=== PATIENT | female | born 1985 | race Caucasian/White ===

== ENCOUNTER 2024-10-29 14:47 | Emergency (ER) | payer MEDICAID, SELFPAY ==
[2024-10-29 14:55] VITALS: BP 110/66; PULSE 77; RESP 18; TEMP 36.5; O2SAT 96; BMI 25.0
--- NOTE | 2024-10-29 15:28 | ED_ITS ---
HPI - Extremity Problem General Chief complaint: Extremity Problem,Nontraumatic Stated complaint: welts on leg thinks is a blood clot Time Seen by Provider: 10/29/24 15:28 Source: patient Mode of arrival: Ambulatory History of Present Illness HPI Narrative: 39-year-old female no significant past medical history comes into the ED from home for evaluation of bruising to left posterior calf, states that she is worried that this might be a blood clot, states that there is some pain with palpation but denies any trauma patient denies any recent travel no other symptoms at this time Related Data Allergies Allergy/AdvReac Type Severity Reaction Status Date / Time No Known Drug Allergies Allergy Verified 10/29/24 14:58 Review of Systems Review of Systems Narrative: General: Denies fever, chills, weight loss HEENT: Denies headache, eye drainage, eye irritation, head trauma, sore throat, voice change Cardiovascular: Denies any chest pain, palpitations, tachycardia Respiratory: Denies any shortness of breath, cough, wheeze, stridor GI/: Denies any abdominal pain, nausea, vomiting, diarrhea, bright red blood per rectum, melanotic stools, urinary frequency, urinary retention, dysuria, hematuria MSK: Denies any joint pain, muscle pains, swelling Skin: Bruising to left posterior calf Neuro: Denies any headache, lightheadedness, dizziness, fainting, weakness Psych: Denies SI/HI Patient History Social History Smoking Status: Former smoker Smoking Status: Former smoker tobacco type: smokeless tobacco Exam Narrative Exam Narrative: General: Cooperative, well-developed, not in acute distress HEENT: Normocephalic, atraumatic, PERRLA, normal sclera, eyelids normal Neck: Active full range of motion, atraumatic Chest: Normal to inspection, negative crepitus, no overlying erythema ecchymosis Respiratory: Normal respiratory effort, not in acute respiratory distress, clear to auscultation bilaterally negative cough, wheeze, tachypnea, rhonchi, rales Cardiology: Regular rate rhythm negative gallop, murmur, rubs GI/: No tenderness to palpation, soft, non rigid, normal to inspection, exam deferred MSK: Full active range of motion in all 4 extremities, atraumatic, no tenderness to palpation of any bony prominences, patient noted ecchymosis noted to the posterior left calf, mild tenderness to palpation but otherwise neurovascularly intact no crepitus patient is able to stand bear weight ambulate unassisted here in the emergency department. Skin: No rashes or lesions noted Neuro: Alert awake oriented x3, moves all 4 extremities spontaneously, cranial nerves intact, able to answer all questions appropriately follows commands appropriately Psych: Cooperative, negative suicidal or homicidal ideations Initial Vital Signs Initial Vital Signs: Vital Signs Temperature 97.7 F 10/29/24 14:55 Pulse Rate 77 10/29/24 14:55 Respiratory Rate 18 10/29/24 14:55 Blood Pressure 110/66 10/29/24 14:55 Pulse Oximetry 96 10/29/24 14:55 Oxygen Delivery Method Room Air 10/29/24 14:55 Course Orders Ordered: ED Orders 10/29/24 15:29 periph venous low extrem lt Stat Vital Signs Vital signs: Vital Signs - 8 hr 10/29/24 14:55 Temperature 97.7 F Pulse Rate 77 Respiratory Rate 18 Blood Pressure 110/66 Pulse Oximetry 96 Oxygen Delivery Method Room Air MDM - Extremity (Nontraumatic) MDM Narrative Medical decision making narrative: 39-year-old female on methadone history of substance abuse comes into the ED from home for evaluation of pain and bruising to her left calf. States that she noticed this spontaneously today after coming home from work. She denies any trauma or falls not on any blood thinners no bleeding or clotting disorders in self or family. She does have a history of surgery to her left ankle secondary to fracture but this is remote. On my exam there is bruising to the left posterior calf but otherwise neurovascularly intact. Patient had an ultrasound of her left lower extremity rule out DVT. Ultrasound showing no DVT but is consistent with a superficial thrombophlebitis. Patient will be discharged home with NSAIDs, warm compresses and instructed to follow up with primary care in outpatient setting. Discharge Plan Departure Patient Disposition: Home Clinical Impression: Superficial thrombophlebitis Instructions: DI for Superficial Thrombophlebitis Activity Restrictions/Additional Instructions: You may use NSAIDs to help with any of the pain or discomfort, you can use compression stockings to help with your symptoms His follow up with the primary care doctor Please read the discharge instructions sheet carefully and bring all papers to all doctor follow-up visits, as it may contain information that your doctor may want to see. Disease processes change and evolve, if your symptoms worsen or if you develop any new symptoms that are concerning to you please return for evaluation. Your evaluation today does not show any evidence of any life- threatening/serious illnesses requiring admission to the hospital or surgery. Please follow-up with your doctor for re-evaluation in approximately 1 day. Seek immediate medical attention for any worrisome symptoms. *If you do not have a primary care provider please contact the [facility] Resource line at [phone]. They will ask some questions about your medical history and help get you set up with a doctor in the community. Stand Alone Forms: Patient Portal/API
--- NOTE | 2024-10-29 15:29 | DI.US.S_ITS ---
PROCEDURE: US PERIPH VENOUS LOW EXTREM LT INDICATIONS: LT UPPER CALF LUMPS TECHNIQUE: Real-time imaging, as well as color and pulse Doppler interrogation, were performed of the lower extremity deep veins from the inguinal ligament to the popliteal fossa, with documentation of the visualized calf veins. COMPARISON: None. FINDINGS: The common femoral, femoral, popliteal, and the visualized calf veins are normally compressible, and free of intraluminal thrombus. Color and pulse Doppler demonstrate normal phasic intraluminal flow. There is normal augmentation response to distal compression maneuver. Limited sonography of the palpable abnormality of the left upper calf demonstrates a thrombosed superficial vein with mild adjacent edema. IMPRESSION: No findings of lower extremity deep venous thrombosis. Superficial thrombophlebitis. Dictated by: Marta Nicole M.D. on 10/29/2024 at 15:45 Approved by: Marta Nicole M.D. on 10/29/2024 at 15:47
[2024-10-29 17:12] VITALS: BP 103/70; PULSE 52; RESP 17; O2SAT 100
== END 2024-10-29 17:13 | disposition home or self-care (01) ==
PROVIDERS: Emergency Provider Student in an Organized Health Care Education/Training Program
DX: I80.02 Phlebitis and thrombophlebitis of superficial vessels of left lower extremity (principal)
CPT/HCPCS: 93971; 99281; 99283

== ENCOUNTER 2024-12-16 22:10 | Emergency (ER) | payer OTHER, SELFPAY ==
[2024-12-16 22:14] VITALS: BP 147/65; PULSE 67; RESP 24; TEMP 36.8; O2SAT 99; BMI 25.0
[2024-12-16] MEDS: IBUPROFEN 400 MG TABLET 800 MG PO (22:21)
== END 2024-12-16 23:26 | disposition left against medical advice (07) ==
PROVIDERS: Emergency Provider Emergency Medicine
DX: K08.89 Other specified disorders of teeth and supporting structures (principal)
CPT/HCPCS: 99283

== ENCOUNTER 2024-12-19 07:08 | Emergency (ER) | payer OTHER, SELFPAY ==
[2024-12-19] VITALS (12 sets, daily range): BP systolic 99–141; BP diastolic 56–86; PULSE 59–89; RESP 18–30; TEMP 36.1; O2SAT 95–100; BMI 29.2
--- NOTE | 2024-12-19 07:19 | ED_ITS ---
HPI - SOB/Dyspnea
--- NOTE | 2024-12-19 07:19 | ED.SOB ---
HPI - SOB/Dyspnea General Chief Complaint: Shortness of Breath/Dyspnea Stated Complaint: having a hard time breathing Time Seen by Provider: 12/19/24 07:16 Source: patient, RN notes reviewed and old records reviewed Limitations: no limitations History of Present Illness HPI Narrative: 39-year-old female with a history of asthma, opiate addiction on methadone, currently vapes. Patient states she started having difficulty breathing in the last day. Patient states she has not inhaler she has had issues more recently in the last couple of months. She notes she has stopped smoking tobacco about a year ago but still vapes smokes marijuana. Patient states she has tightness, she denies chest pain, she has been sweaty. She is not aware of any fevers. She has had recent cough has been nonproductive with some nasal congestion. She denies any nausea or vomiting, she notes some diarrhea recently. No new swelling in extremities. She states her only daily medication is methadone no new changes to dosage. Denies any major surgeries. She has never been hospitalized for asthma. Denies any drug allergies. Uses smokeless tobacco, vapes marijuana denies any recreational drugs. Related Data Previous Rx's ?Medication ?Instructions ?Recorded albuterol sulfate 90 mcg/actuation 2 puff inhalation QID PRN 12/19/24 aerosol inhaler shortness of breath or wheezing #6.7 grams prednisone 10 mg tablets in a dose See Rx Instructions PO .COMPLEX 12/19/24 pack #21 ea Allergies Allergy/AdvReac Type Severity Reaction Status Date / Time No Known Drug Allergies Allergy Verified 12/16/24 22:14 Review of Systems Review of Systems ROS Unobtainable: All systems reviewed & are unremarkable except as noted in HPI and below Patient History tobacco type: smokeless tobacco Exam Narrative Exam Narrative: GEN: well nourished, well appearing female, alert and oriented x 3, patient appears to be in moderate distress. Patient is diaphoretic. HEENT: Atraumatic, pupils are equal round reactive to light, extraocular movements are intact, nares are clear, there is no conjunctival pallor. Throat is clear without any exudates, erythema, tonsillar enlargement or uvular deviation, clear speech no stridor. HEART: Regular rate and rhythm without murmur, clicks, rubs. Pulses are equal in upper and lower extremities LUNGS:Lungs patient has coarse lung sounds bilaterally with wheeze more in the left upper but expiratory wheeze present throughout, patient is tachypneic rales, crackles, chest moves symmetrically, speaks in 3-4 word sentences. ABD:bowel sounds normal, soft, non-tender, no guarding, rebound, rigidity, no masses noted, no hepatosplenomegaly MSCL: Non-tender, no muscle atrophy, muscles strength 5/5 upper and lower extremities, full range of motion, normal gait NEURO:CN 2-12 intact, sensation normal SKIN: No rash, erythema or other skin changes Initial Vital Signs Initial Vital Signs: Vital Signs Temperature 96.9 F L 12/19/24 07:19 Pulse Rate 89 12/19/24 07:19 Respiratory Rate 30 H 12/19/24 07:19 Blood Pressure 141/86 H 12/19/24 07:19 Pulse Oximetry 97 12/19/24 07:19 Oxygen Delivery Method Room Air 12/19/24 07:19 Course Orders Ordered: ED Orders 12/19/24 07:20 XR chest 1V Stat EKG-12 Lead Stat Measure peak expiratory flow STAT RT Consult Eval and Treat STAT 12/19/24 07:21 Complete Blood Count AUTO DIFF Stat Comprehensive Metabolic Panel Stat Lactate (Lactic Acid) Stat NT-proBNP (BNP-Adult 18+) Stat Prothrombin Time INR Stat Troponin I Stat Discontinued Medications Albuterol (Albuterol 2.5 Mg/3 Ml Neb (Adult)) 5 mg INH NOW ONE Stop: 12/19/24 08:06 Last Admin: 12/19/24 08:17 Dose: 5 mg Documented By: AVIVA Albuterol/Ipratropium (Albuterol/Ipratropium 3 Ml Ampul) 3 ml INH Q1H PRN PRN Reason: Shortness Of Breath Last Admin: 12/19/24 07:22 Dose: 3 ml Documented By: AVIVA Methylprednisolone (Methylprednisolone Succ 125 Mg/2 Ml Vial) 125 mg IV NOW ONE Stop: 12/19/24 07:20 Last Admin: 12/19/24 07:23 Dose: 125 mg Documented By: JULY Vital Signs Vital signs: Vital Signs - 8 hr 12/19/24 08:00 12/19/24 08:01 12/19/24 08:01 Pulse Rate 59 L 60 Respiratory Rate Blood Pressure 99/68 Pulse Oximetry 95 95 Oxygen Delivery Method 12/19/24 08:17 12/19/24 08:30 12/19/24 08:30 Pulse Rate 80 76 Respiratory Rate 18 Blood Pressure 112/56 L Pulse Oximetry 98 99 Oxygen Delivery Method Room Air 12/19/24 09:00 12/19/24 09:00 Pulse Rate 71 Respiratory Rate Blood Pressure 117/61 Pulse Oximetry 96 Oxygen Delivery Method MDM - SOB/Dyspnea Lab Data 12/19/24 07:21 12/19/24 07:21 Labs: Lab Results 12/19/24 12/19/24 Range/Units 07:21 10:33 WBC 9.5 (4.5-11.0) X10^3/uL RBC 4.44 (4.0-5.2) X10^6/uL Hgb 12.8 (12.0-16.0) g/dL Hct 38.7 (36-46) % MCV 87.3 (80-100) fL MCH 28.8 (26-34) PG MCHC 33.1 (30-36) % RDW 13.6 (11.6-14.8) % Plt Count 290 (150-400) X10^3/uL Neut % (Auto) 32.3 L (50-75) % Lymph % (Auto) 45.4 H (25-40) % [place] % (Auto) 5.0 (3-14) % Eos % (Auto) 16.4 H (2-4) % Baso % (Auto) 0.9 (0-2) % Neut # (Auto) 3100 (4786-9257) /uL Lymph # (Auto) 4300 (7414-9777) /uL [place] # (Auto) 500 (0-900) /uL Eos # (Auto) 1600 H (0-450) /uL Baso # (Auto) 100 (0-100) /uL PT 12.1 (9.4-12.5) SECONDS INR 1.1 (0.9-1.3) Sodium 141 (137-145) mmol/L Potassium 4.3 (3.4-5.1) mmol/L Chloride 106 (98-107) mmol/L Carbon Dioxide 23 (22-32) mmol/L BUN 8 (7-17) mg/dL Creatinine 0.69 (0.52-1.04) mg/dL Estimated GFR > 60 (>60) mL/min BUN/Creatinine Ratio 11.6 (6-22) Glucose 119 H (70-99) mg/dL Lactate 2.9 H Cancelled (0.7-2.1) mmol/L Calcium 9.0 (8.4-10.2) mg/dL Total Bilirubin 0.4 (0.2-1.3) mg/dL AST 27 (14-36) IU/L ALT 16 (<35) IU/L Alkaline Phosphatase 57 (38-126) U/L Troponin I < 0.012 (0.01-0.034) ng/mL NT-Pro-B Natriuret Pep 115 (<125) pg/mL Total Protein 8.4 H (6.3-8.2) g/dL Albumin 4.6 (3.5-5.0) g/dL Globulin 3.8 (1.7-4.1) g/dL Albumin/Globulin Ratio 1.2 (1.0-2.8) ECG Data Attestation: I personally reviewed and interpreted this ECG as follows: Prior ECG tracings: not available for review Interpretation: Sinus rhythm premature atrial complexes rate of 68 MA 150 QRS 80 QTC of [address] elevation or depression noted. MDM Narrative Medical decision making narrative: Labs normal white count, hemoglobin and platelets predominance of lymphocytes, air in his 1.1 electrolytes BUN and creatinine are normal glucose is 119 lactate is 2.9 LFTs are otherwise normal calcium is 9 troponins less than 0.012 with a BNP of 115. Chest x-ray shows no acute cardiopulmonary change EKG sinus rhythm premature atrial complexes Patient received steroids and DuoNeb on rechecked patient is much more comfortable sitting back but still wheezy on exam. Received additional albuterol. On rechecked patient's wheeze has resolved she is feeling significantly better she is requesting discharge home repeat lactate has not been obtained but patient is clinically appears much better and would like to discharge home so she can take her methadone. We will discharge home on oral prednisone, new spacer and albuterol refill. Discussed return precautions all questions answered. Did discuss with patient has frequent episodes probably be on a steroid inhaler but sounds like these are fairly rare occurrences. Discharge Plan Departure Patient Disposition: Home Clinical Impression: Asthma with exacerbation Instructions: Asthma -- Adult Activity Restrictions/Additional Instructions: Follow up for recheck. You appear to have had an asthma exacerbation today. If you are having them frequently you need to follow up with a physician to possibly be on a maintenance inhaler/steroid inhaler. Use your albuterol inhaler with a spacer you can do 2-4 puffs as needed every 4 hours. Take oral steroid until completed. Prescription sent to [place] pharmacy. Please return if you have recurrent symptoms, new chest pain or shortness of breath, diaphoresis, lightheadedness or passing out, persistent vomiting new swelling in your extremities or other new or concerning changes. Prescriptions: New prednisone 10 mg tablets,dose pack See Rx Instructions .ROUTE .COMPLEX Qty: 21 0RF Rx Instructions: 6 tabs p.o. x1 day, then 5 tabs p.o. x1 day, then 4 tablets p.o. x1 day, then 3 tabs p.o. x1 day, then 2 tabs p.o. x1 day, then 1 tab p.o. x1 day albuterol sulfate 90 mcg/actuation HFA aerosol inhaler 2 puff inhalation QID PRN (Reason: shortness of breath or wheezing) Qty: 6.7 0RF Stand Alone Forms: Patient Portal/API
--- NOTE | 2024-12-19 07:20 | DI.RAD.S_ITS ---
PROCEDURE: XR CHEST 1V
[2024-12-19] MEDS: ALBUTEROL/IPRATROPIUM 3 ML AMPUL INH (07:22)
[2024-12-19] MEDS: methylPREDNISolone succ 125 MG/2 ML VIAL IV (07:23)
[2024-12-19 07:29] LABS: Add Manual Diff / Slide Review NO; Hematocrit 38.7 % (36-46); Hemoglobin 12.8 g/dL (12.0-16.0); Lymphocytes Absolute Auto 4300 /uL (1100-4500); Mean Corpuscular HGB Conc 33.1 % (30-36); Mean Corpuscular Hemoglobin 28.8 PG (26-34); Mean Corpuscular Volume 87.3 fL (80-100); Platelet Count 290 X10^3/uL (150-400)
--- NOTE | 2024-12-19 07:32 | PC.NURSE ---
patient reporting being sick and ignoring it for several weeks and has now become worse. pt has a deep productive cough - moist and frequent
[2024-12-19 07:35] LABS: INR 1.1 (0.9-1.3); Prothrombin Time 12.1 SECONDS (9.4-12.5)
--- NOTE | 2024-12-19 07:39 | EKG_ITS ---
[facility]
[2024-12-19 07:40] LABS: Lactate (Lactic Acid) 2.9 mmol/L (0.7-2.1)
[2024-12-19 07:41] LABS: Alanine Aminotransferase 16 IU/L (<35); Albumin 4.6 g/dL (3.5-5.0); Albumin Globulin Ratio 1.2 (1.0-2.8); Alkaline Phosphatase 57 U/L (38-126); Blood Urea Nitrogen 8 mg/dL (7-17); Calcium 9.0 mg/dL (8.4-10.2); Carbon Dioxide 23 mmol/L (22-32); Chloride 106 mmol/L (98-107); Estimated Glomerular Filt Rate > 60 mL/min (>60); Globulin 3.8 g/dL (1.7-4.1); Glucose 119 mg/dL (70-99); HEMOLYSIS < 15 (0-50); Potassium 4.3 mmol/L (3.4-5.1); Sodium 141 mmol/L (137-145); Total Protein 8.4 g/dL (6.3-8.2)
[2024-12-19 07:53] LABS: NT-proBNP (BNP-Adult 18+) 115 pg/mL (<125); Troponin I < 0.012 ng/mL (0.01-0.034)
[2024-12-19] MEDS: ALBUTEROL 2.5 MG/3 ML NEB (ADULT) 5 MG INH (08:17)
[2024-12-19 09:01] LABS: Reflexed Lactate in 2 Hours Y
== END 2024-12-19 09:31 | disposition home or self-care (01) ==
PROVIDERS: Emergency Provider Emergency Medicine
DX: J45.901 Unspecified asthma with (acute) exacerbation (principal); F17.290 Nicotine dependence, other tobacco product, uncomplicated; F12.90 Cannabis use, unspecified, uncomplicated; F11.20 Opioid dependence, uncomplicated
CPT/HCPCS: 36415; 71045; 80053; 83605; 83880; 84484; 85025; 85610; 93005; 94640; 96374; 99284; J2919; J7613